=== PATIENT | female | born 1985 | race Caucasian/White ===

== ENCOUNTER 2017-11-22 05:42 | Emergency (ER) | payer MEDICAID, SELFPAY ==
[2017-11-22 05:44] VITALS: BP 132/85; PULSE 107; RESP 16; TEMP 37.1; O2SAT 98; BMI 25.0
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
[2017-11-22 07:05] VITALS: BP 130/78; PULSE 79; RESP 16; O2SAT 97
== END 2017-11-22 07:07 | disposition home or self-care (01) ==
PROVIDERS: Emergency Provider Emergency Medicine
DX: M79.1 Myalgia (principal); S16.1XXA Strain of muscle, fascia and tendon at neck level, initial encounter; S39.012A Strain of muscle, fascia and tendon of lower back, initial encounter; V43.52XA Car driver injured in collision with other type car in traffic accident, initial encounter; Y93.9 Activity, unspecified; Y92.410 Unspecified street and highway as the place of occurrence of the external cause; Y99.9 Unspecified external cause status; R53.1 Weakness
CPT/HCPCS: 99282

== ENCOUNTER 2018-03-24 11:12 | Emergency (ER) | payer MEDICAID, SELFPAY ==
[2018-03-24 11:13] VITALS: BP 122/93; PULSE 90; RESP 16; TEMP 37.1; O2SAT 99; BMI 24.6
--- NOTE | 2018-03-24 11:25 | ED.DCSUM_ITS ---
- ER Visit Summary Date of Service: 03/24/18 Chief Complaint: Epigastric abdominal pain History of Present Illness: The patient is a 32 F no significant past medical history. Prior and tonsillectomy. Patient states yesterday started having epigastric abdominal pain. No nausea no vomiting no diarrhea. No constipation. No dysuria. Last menstrual period about 5 days ago. No fever. No weight loss. No prior history of this pain. No trauma. Physical Examination: Well-appearing young female. Vital signs are stable. She is afebrile. She does not look septic or toxic. She is in no acute distress. H EENT exam is unremarkable. Neck nontender. No lymphadenopathy. Lungs clear to auscultation bilaterally. Heart regular rhythm no murmur. Abdomen is soft. Nondistended. Normal bowel sounds. Tender in epigastric region. No rebound, guarding or rigidity. No peritoneal signs. Both the right upper quadrant right lower quadrant nontender. There is no hernias or masses. No signs of traction. Extremities moves all 4. Back nontender. Neurologically awake and alert with no focal motor deficits. Test Results: CBC normal white count 7. Hemoglobin 14. Chemistries normal normal gap and creatinine. Liver and lipase normal. Emergency Department Course and Treatment: Patient will be treated with a GI cocktail and p.o. Pepcid. Repeat exam at 1230 patient is doing well. Abdomen is benign. She denies discussed all of her normal test results. Treatment Plan: Discharge home. Protonix daily. Follow-up with a primary care physician locally. Disposition: Discharge Impression: Acute epigastric abdominal pain of uncertain etiology This note was generated with [employer] dictation software. It may contain incorrect words, spelling, and punctuation that were not noted in review of the chart prior to signing ED Disposition - Plan for ED Patient: Chief Complaint: Abd Pain Referrals: Care Physician,No Primary [Primary Care Provider] -
[2018-03-24] MEDS: Mag Hydrox/Al Hydrox/Simeth 30 ML UDC PO (11:37)
[2018-03-24 11:45] LABS: Absolute Lymphocyte Count 1.56 X10^3/ul (0.83-4.51); Absolute Neutrophil Count 5.2 X10^3/uL (2.0-7.7); Basophil# 0.01 X10^3/uL; Basophil% 0.1 % (0-1); Eosinophil# 0.12 X10^3/uL; Eosinophils% 1.6 % (0-5); Hematocrit 42.9 % (37-47); Hemoglobin 14.1 g/dl (12.0-15.0); Lymphocyte # 1.56 X10^3/ul (4.0); Lymphocyte % 20.7 % (19-41); Mean Corp Hgb Conc 32.9 g/gl (32-36); Mean Corpuscular Hgb 32.7 pg (27.0-32.0); Mean Corpuscular Volume 99.5 fL (81-99); Mean Platelet Vol. 9.7 fl (6.2-12.0); Monocyte# 0.65 X10^3/uL; Monocyte% 8.6 % (0-10); Neutrophil # 5.18 X10^3/uL (2.7-7.7); Neutrophil % 68.9 % (47-70); Platelet Count 269 K/mm3 (150-450); RBC Distribution Width CV 12.3 % (11.6-14.6); RBC Distribution Width SD 45.1 fl (35.1-43.9); Red Blood Count 4.31 M/mm3 (4.2-5.4); White Blood Count 7.5 K/mm3 (4.4-11.0)
[2018-03-24 11:46] LABS: POSITIVE COUNT NO; POSITIVE DIFFERENTIAL NO; POSITIVE MORPHOLOGY NO
[2018-03-24 11:54] LABS: AST(SGOT) 15 U/L (15-37); Alanine Aminotransfer ALT/SGPT 27 U/L (13-56); Albumin, Serum 4.3 g/dL (3.2-5.0); Alkaline Phosphatase 89 U/L (45-117); Anion Gap 6 (5-15); BUN 13 mg/dL (7-18); BUN/Creat Ratio 20.9 RATIO (10-20); Bilirubin, Direct 0.14 mg/dL (0.00-0.30); Calcium,Total 8.5 mg/dL (8.5-10.1); Chloride 106 mmol/L (98-107); Creatinine, Serum 0.62 mg/dL (0.55-1.02); EST Glomerular Filtration Rate 119 mL/min (>60); Est Glom Filt Rate - Afr Amer 144 mL/min (>60); Globulin 3.2 g/dL (2.2-4.2); Glucose 82 mg/dL (74-106); Lipase 63 U/L (73-393); Potassium 3.8 mmol/L (3.5-5.1); Protein, Total 7.5 g/dL (6.4-8.2); Sodium Level 139 mmol/L (136-145)
[2018-03-24] MEDS: Famotidine 20 MG Tablet 40 MG PO (12:00)
--- NOTE | 2018-03-24 12:33 | ED.DEP ---
ED Disposition - Plan for ED Patient: Disposition: Home or Assisted Living Chief Complaint: Abd Pain Instructions: ED Gastritis Prescriptions: Pantoprazole Sodium [Protonix] 40 mg PO DAILY #30 tab Referrals: Raf Nevarez MD [STAFF PHYSICIAN] - 1 Week Additional Instructions: Protonix daily for epigastric abdominal pain which may be from gastritis. Follow-up with a local primary care physician.
[2018-03-24 12:54] VITALS: RESP 18
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
== END 2018-03-24 12:55 | disposition home or self-care (01) ==
PROVIDERS: Emergency Provider Emergency Medicine
DX: R10.13 Epigastric pain (principal)
CPT/HCPCS: 80048; 80076; 83690; 85025; 99285; A4216

== ENCOUNTER → 2018-06-21 16:14 | Outpatient (CLI) | payer MEDICAID, SELFPAY ==
[2018-06-24 08:59] LABS: HPV HC, High Risk Negative (Negative)
== END ==
PROVIDERS: Visit Provider Obstetrics & Gynecology
DX: Z12.4 Encounter for screening for malignant neoplasm of cervix (principal)
CPT/HCPCS: 87624; 88175; G0145